=== PATIENT | female | born 1970 ===

== ENCOUNTER 2019-06-03 13:37 | Inpatient (IN) | payer OTHER ==
[~2019-06-03] VITALS: Ht 152.4 cm; Wt 90.7 kg
[2019-06-06] MEDS ORDERED: METRONIDAZOLE500 MG PO (08:40)
[2019-06-06] MEDS ORDERED: INTESTINEX680 M1 PO (08:40)
[2019-06-06] MEDS ORDERED: OMEPRAZOLE MAGN20 MG PO (08:40)
== END 2019-06-06 10:51 | disposition home or self-care (01) | DRG 392 ==
LOC: ER 13:37 → MEDJ 17:47
PROVIDERS: ADMIT Internal Medicine
PROC: BW21YZZ Computerized Tomography (CT Scan) of Abdomen and Pelvis using Other Contrast (ICD-10-PCS; principal; 2019-06-04)
DX: A09 Infectious gastroenteritis and colitis, unspecified (principal)